=== PATIENT | female | born 1970 | race Caucasian/White ===

== ENCOUNTER → 2025-04-20 10:08 | Outpatient (BNVA) | payer BC, SELFPAY | PROVIDERS: Visit Provider Podiatrist Foot & Ankle Surgery | DX: B35.1 Tinea unguium (principal) | CPT/HCPCS: 36415; 80053 ==

== ENCOUNTER 2025-05-18 11:51 | Outpatient (CLI) | payer BC, SELFPAY | END 2025-05-18 11:52 | disposition home or self-care (01) | LOC: LAB 11:52 | PROVIDERS: PCP Podiatrist Foot & Ankle Surgery; Visit Provider Podiatrist Foot & Ankle Surgery | DX: L60.3 Nail dystrophy (principal) | CPT/HCPCS: 36415 ==

== ENCOUNTER 2025-05-24 15:49 | Outpatient (CLI) | payer BC, SELFPAY ==
[2025-05-24 17:20] LABS: Alanine Aminotransferase 45 U/L (0-33); Albumin Level 4.6 g/dL (3.5-5.2); Alkaline Phosphatase 119 U/L (35-105); Aspartate Amino Transferase 32 U/L (0-32); Blood Urea Nitrogen 15 mg/dL (6-20); Calcium 9.8 mg/dL (8.5-10.5); Carbon Dioxide 26 mmol/L (22-29); Chloride 101 mmol/L (98-107); Globulin 2.8 g/dL (1.3-4.6); Glucose 91 mg/dL (65-115); Osmolality Calculated 290 mOsm/kg (285-295); Sodium 140 mmol/L (136-145); Total Protein 7.4 g/dL (6.6-8.7)
[2025-05-24 17:22] LABS: Anion Gap 16.7 (5-19); Potassium 3.7 mmol/L (3.5-5.1)
== END 2025-05-24 15:50 | disposition home or self-care (01) ==
LOC: LAB 15:49
PROVIDERS: PCP Podiatrist Foot & Ankle Surgery; Visit Provider Podiatrist Foot & Ankle Surgery
DX: L60.3 Nail dystrophy (principal)
CPT/HCPCS: 36415; 80053